=== PATIENT | female | born 1995 | race Caucasian/White ===

== ENCOUNTER 2021-06-17 15:02 | Outpatient (REF) | payer MEDICAID, SELFPAY ==
[2021-06-17 15:42] LABS: Binax Internal Control QC Valid; Binax Now Covid-19 Ag Negative (Negative)
== END 2021-06-17 15:03 | disposition home or self-care (01) ==
LOC: HO.LAB 15:02
PROVIDERS: Visit Provider Internal Medicine
DX: Z20.822 Contact with and (suspected) exposure to COVID-19 (principal)
CPT/HCPCS: C9803

== ENCOUNTER 2021-12-29 15:45 | Outpatient (REF) | payer MEDICAID, SELFPAY ==
[2021-12-29 17:14] LABS: COVID-19 Test Negative (Negative)
== END 2021-12-29 15:46 | disposition home or self-care (01) ==
LOC: HO.LAB 15:45
PROVIDERS: Visit Provider Internal Medicine
DX: Z20.822 Contact with and (suspected) exposure to COVID-19 (principal)
CPT/HCPCS: 87635; C9803

== ENCOUNTER 2023-03-03 13:16 | Outpatient (AMB) | payer MEDICAID, SELFPAY ==
[2023-03-03 13:20] VITALS: BMI 36.0
--- NOTE | 2023-03-03 13:20 | A.OFFVIS_ITS ---
Intake VS Expanded 03/03/23 13:20 03/11/23 14:20 Height 5 ft 2 in 5 ft 2 in Weight 196 lb 10.437 oz 197 lb BMI 36.0 36.0 Intake Visit Reasons: Obesity HPI Nutrition Presentation Details Pt presents for MNT for obesity. The Pt was referred by Jolynn Mcdonald from [facility] Pt reports gradual wt gain, 120 lbs prior to preg 2 years ago , reac hed 175 lbs during and now having difficulties losing weight Typical meal b: oatmeal with milk carnation with cinnamon, water , coffee (black ) with sugar L fries and chicken fried or root vegetable with meat, water Dinner: rice/beans , beef water snack on cookies, chips, Beverages: water, juice, coffee m ilk, 64 oz/d physical activity : daily life activities, 10 minutes in treadmill ETOH/SMoking: occ alcohol 4 servings/wk PQP-Gkhcdkx-Yp.Jeor Equation Height 5 ft 2 in Weight 197 lb Resting Metabolic Rate 1578.17 Calculated Activity Level Sedentary Calories Needed to Maintain Weight 1893.80 Diagnosis Nutrition problem #1 excessive energy intake As related to (etiology) #1 diagnosis As evidenced by (sign/symptom) #1 high BMI (36 on 02/2023) Monitoring/Goals Nutrition problem monitoring level of knowledge/skill, weight and oral fluids Nutrition goal/outcome wt loss 5lbs in 2 months Learning/Education Readiness to learn good Stages of change preparation Educational materials provided Yes (meal planning, low fat cooking) Most Recent Diabetes Results: No Data to Display Assessment & Plan Assessment & Plan (1) Obesity (BMI 30-39.9): Code(s): E66.9 - Obesity, unspecified Plan: wt: 89.5 kg Est kcal needs as per MSJ: 1900 (40% carb, 30% protein/fat) Est fluid needs as per 25-30 ml/d: 2225 -2670 Est prot per day as per 1 g/kg bw: 89 Recommend fiber intake : 8-10 g per day and gradually increase to 25-28 g per day for women and 35-38 g for men or as tolerated Recommend sodium intake per day : less than 2000 mg Educated patient on: ( R = reviewed V = verbalizes understanding N/R = needs review N/A = not applicable * Food sources of carbohydrate, adequate serving sizes and its role in various health conditions: R * Differences between complex carbohydrates a simple carbohydrates, role of fiber in diet: R * Differences between types of fats and role in diet (mono on saturated fat fatty acids, saturated fatty acids, trans fats): R basic low fat * Food sources of sodium in salt and healthy modifications for heart health in kidney health: NR * Vitamins and minerals: NR * Healthy plate method concept: R V * Physical activity: Benefits a precaution: R * low calorie fluid options: R * protein source of foods :R Patient Instructions: Work on Reduce carbs at dinner to 45 g at meals following healthy plat method Drink water with meals, low sugar beverages Coding Level of Care Code Nutr Indiv Intake (30251) Diagnoses Obesity (BMI 30-39.9) E66.9 Time Spent (min) 30
[2023-03-11 14:20] VITALS: BMI 36.0
== END 2023-03-03 14:08 | disposition home or self-care (01) ==
PROVIDERS: Visit Provider Dietitian, Registered
DX: E66.9 Obesity, unspecified (principal)

== ENCOUNTER → 2023-03-03 13:16 | Outpatient (BNVA) | payer OTHER, SELFPAY | PROVIDERS: Visit Provider Dietitian, Registered | DX: E66.9 Obesity, unspecified (principal); Z68.36 Body mass index [BMI] 36.0-36.9, adult | CPT/HCPCS: 97802 ==

== ENCOUNTER 2023-05-13 14:15 | Outpatient (AMB) | payer MEDICAID, SELFPAY ==
[2023-05-13 14:19] VITALS: BMI 37.3
--- NOTE | 2023-05-13 14:19 | A.OFFVIS_ITS ---
Intake VS Expanded 05/13/23 14:19 Height 5 ft 2 in Weight 204 lb 2.369 oz BMI 37.3 Intake Visit Reasons: Obesity/CONFIRMED HPI Nutrition Presentation Details Pt presents for MNT for obesity. The Pt reports having made no diet modifications. Most Recent Diabetes Results: No Data to Display Assessment & Plan Assessment & Plan (1) Obesity (BMI 30-39.9): Code(s): E66.9 - Obesity, unspecified Plan: wt: 89.5 kg (02/2023) , 93 kg (04/2023) Est kcal needs as per MSJ: 1900 (40% carb, 30% protein/fat) Est fluid needs as per 25-30 ml/d: 2225 -2670 Est prot per day as per 1 g/kg bw: 89 Recommend fiber intake : 8-10 g per day and gradually increase to 25-28 g per day for women and 35-38 g for men or as tolerated Recommend sodium intake per day : less than 2000 mg Educated patient on: ( R = reviewed V = verbalizes understanding N/R = needs review N/A = not applicable * Food sources of carbohydrate, adequate serving sizes and its role in various health conditions: R * Differences between complex carbohydrates a simple carbohydrates, role of fiber in diet: R * Differences between types of fats and role in diet (mono on saturated fat fatty acids, saturated fatty acids, trans fats): R basic low fat * Food sources of sodium in salt and healthy modifications for heart health in kidney health: NR * Vitamins and minerals: NR * Healthy plate method concept: R V * Physical activity: Benefits a precaution: R * low calorie fluid options: R * protein source of foods :R Patient Instructions: Practice mindful eating Choose low sugar beverages Have a meal replacement once a day Coding Level of Care Code Nutr Indiv Subseq (77737) Diagnoses Obesity (BMI 30-39.9) E66.9 Time Spent (min) 30
== END 2023-05-13 14:55 | disposition home or self-care (01) ==
PROVIDERS: Visit Provider Dietitian, Registered
DX: E66.9 Obesity, unspecified (principal)

== ENCOUNTER → 2023-05-13 14:15 | Outpatient (BNVA) | payer OTHER, SELFPAY | PROVIDERS: Visit Provider Dietitian, Registered | DX: E66.9 Obesity, unspecified (principal); Z68.37 Body mass index [BMI] 37.0-37.9, adult | CPT/HCPCS: 97803 ==